=== PATIENT | male | born 1990 | race American Indian/Alaskan Native ===

== ENCOUNTER 2017-11-11 20:16 | Emergency (ER) | payer SELFPAY ==
[2017-11-11 20:48] VITALS: BP 120/70
--- NOTE | 2017-11-11 21:36 | Emergency Department Report ---
HPI - General Chief Complaint: Extremity Injury, Upper Time Seen by Provider: 11/11/17 21:20 - HPI HPI: 27-year-old -[place] male comes in for complaint of pain in right thumb with redness and swelling after biting nail 4 days. Patient denies any fever chills no nausea no vomiting no other complaints. Patient has a past medical history of noncardiac takes no medications. Does not have a primary care provider. Patient reports that this has happen once before and biting his nails. ED Past Medical Hx - Past Medical History Previous Medical History?: No - Surgical History Past Surgical History?: No - Social History Smoking Status: Never Smoker Substance Use Type: None - Medications Home Medications: Home Medications Medication Instructions Recorded Confirmed Last Taken Type Ibuprofen 800 mg PO Q8H PRN #15 tablet 11/11/17 Unknown Rx Sulfamethoxazole/Trimethoprim 1 each PO BID 10 Days #20 tablet 11/11/17 Unknown Rx [Bactrim DS TAB] ED Review of Systems ROS: Stated complaint: RIGHT THUMP PAIN Other details as noted in HPI Constitutional: denies: chills, fever Eyes: denies: eye pain, eye discharge, vision change ENT: denies: ear pain, throat pain Respiratory: denies: cough, shortness of breath, wheezing Cardiovascular: denies: chest pain, palpitations Endocrine: no symptoms reported Gastrointestinal: denies: abdominal pain, nausea, diarrhea Genitourinary: denies: urgency, dysuria Musculoskeletal: denies: back pain, joint swelling, arthralgia Skin: change in hair/nails (right thumb pain redness and swelling). denies: rash, lesions Neurological: denies: headache, weakness, paresthesias Psychiatric: denies: anxiety, depression Hematological/Lymphatic: denies: easy bleeding, easy bruising Physical Exam - Physical Exam Vital Signs: Vital Signs 11/11/17 20:44 Temperature 98 F Pulse Rate 73 Respiratory 16 Rate Blood Pressure 120/70 O2 Sat by Pulse 100 Oximetry Physical Exam: GENERAL: Alert and oriented x3, no apparent distress, Normal Gait, atraumatic. HEAD: Head is normocephalic and a-traumatic. EYES: Extra ocular muscles are intact. Pupils are equal, round, and reactive to light and accommodation. NOSE: Nose symetrical, Nontender,Nares appeared normal. MOUTH:Mouth is well hydrated and without lesions. Tonsils nonerythematous or swollen, Uvula midline, Tongue not elevated. Mucous membranes are moist. Posterior pharynx clear, no exudate or lesions. Patent airways. EXTREMITIES/MUSCULOSKELETAL: No cyanosis, clubbing, rash, lesions or edema. Full ROM bilaterally. UE/LE Pulses 2+ bilaterally. LE and UE 5+ strength bilaterally NEUROLOGIC: No focal Deficit, Cranial nerves II through XII are grossly intact. No loss of sensation, No facial droop, PSYCHIATRIC: Mood is congruent with affect, denies suicidal or homicidal ideations. SKIN: Warm and dry, No lesions, No ulceration or induration present right thumb around the cuticle medial erythematous edematous tenderness to palpate no drainage appreciated ED Course Vital Signs 11/11/17 20:44 Temperature 98 F Pulse Rate 73 Respiratory 16 Rate Blood Pressure 120/70 O2 Sat by Pulse 100 Oximetry - I & D Right Medial Dorsal Finger Site: right thumb medial aspect of the cuticle Blade Size: 11 I & D Procedure: betadine prep, sterile drapes applied, sterile dressing applied Progress: Patient tolerated procedure well ED Medical Decision Making - Medical Decision Making Patient is been evaluated by this provider in fast track. Discussed the patient we'll discharge him on antibiotics and pain medication. Discussed the patient that we need to incision and drain the paronychia. Also discussed the patient that he needs to stop biting his cuticles. Critical care attestation.: If time is entered above; I have spent that time in minutes in the direct care of this critically ill patient, excluding procedure time. ED Disposition Clinical Impression: Paronychia of finger of right hand Disposition: DC-01 TO HOME OR SELFCARE Is pt being admited?: No Does the pt Need Aspirin: No Condition: Stable Instructions: Paronychia (ED) Additional Instructions: Please complete antibiotics as prescribed. Take pain medication as prescribed. Follow-up the primary care provider for further evaluation. I have listed one below. Prescriptions: Ibuprofen 800 mg PO Q8H PRN #15 tablet PRN Reason: Pain Sulfamethoxazole/Trimethoprim [Bactrim DS TAB] 1 each PO BID 10 Days #20 tablet Referrals: PRIMARY CARE [Primary Care Provider] - 3-5 Days [facility] [Provider Group] - 3-5 Days Forms: Work/School Release Form(ED)
== END 2017-11-11 22:25 | disposition home or self-care (01) ==
LOC: ED 20:16
DX: L03.011 Cellulitis of right finger (principal)
CPT/HCPCS: 99282